=== PATIENT | male | born 1990 | race Caucasian/White ===

== ENCOUNTER 2018-12-18 18:07 | Emergency (ER) | payer SELFPAY ==
[~2018-12-18] VITALS: Ht 180.3 cm; Wt 86.2 kg
[~2018-12-18 18:07] MED LIST: AMOXICILLIN500 MG PO; CLINDAMYCIN HC300 MG PO; NORCO 5-325 TA1 EACH PO
== END 2018-12-18 19:43 | disposition home or self-care (01) ==
LOC: ED 18:07
DX: S61.210A Laceration without foreign body of right index finger without damage to nail, initial encounter (principal); W26.8XXA Contact with other sharp object(s), not elsewhere classified, initial encounter; F17.200 Nicotine dependence, unspecified, uncomplicated
CPT/HCPCS: 99282

== ENCOUNTER 2025-01-28 12:43 | Emergency (ER) | payer OTHER ==
[~2025-01-28] VITALS: Ht 180.3 cm; Wt 80.0 kg
[2025-01-28] MEDS ORDERED: DIPHTH,PERTUSS(ACELL),TET VAC 0.5 ML SYRINGE IM ONE (14:15)
[2025-01-28 14:25] VITALS: BP 115/78
== END 2025-01-28 14:35 | disposition home or self-care (01) ==
LOC: ED 12:43
DX: S61.011A Laceration without foreign body of right thumb without damage to nail, initial encounter (principal); W26.0XXA Contact with knife, initial encounter; F17.200 Nicotine dependence, unspecified, uncomplicated
CPT/HCPCS: 90471; 90715; 99282-25